=== PATIENT | male | born 2000 | race Hispanic/Latino ===

== ENCOUNTER 2018-10-13 10:47 | Emergency (ER) | payer OTHER ==
[~2018-10-13] VITALS: Ht 170.2 cm; Wt 83.9 kg
[2018-10-13] MEDS ORDERED: LIDO5DIS41 TOP (10:55)
[2018-10-13] MEDS ORDERED: ZANA4CAP PO (10:55)
[2018-10-13] MEDS ORDERED: NS 1,000 ML IV ONE (13:45)
[2018-10-13 14:09] LABS: BASO % 0.4 % (0.0-1.0); EOS # 0.1 10^3/uL (0.0-0.50); EOS % 1.6 % (0.0-3.0); HEMATOCRIT 45.4 % (42.0-52.0); HEMOGLOBIN 15.5 g/dl (13.5-17.5); LYMPH % 26.2 % (24.0-44.0); MEAN CORPUSCULAR HEMOGLOBIN 30.5 pg (27.0-33.0); MEAN CORPUSCULAR HGB CONC 34.1 g/dl (32.0-36.5); MEAN CORPUSCULAR VOLUME 89.2 fl (80.0-96.0); MONO # 0.7 10^3/uL (0.0-0.8); MONO % 8.7 % (0.0-5.0); NEUTROPHILS # 4.8 10^3/uL (1.8-7.7); NEUTROPHILS % 62.6 % (36.0-66.0); PLATELET COUNT, AUTOMATED 315 10^3/uL (150-450); RED BLOOD COUNT 5.09 10^6/uL (4.30-6.10); WHITE BLOOD COUNT 7.6 10^3/uL (4.0-10.0)
[2018-10-13 14:31] LABS: ALBUMIN 4.5 GM/DL (3.2-5.2); ALT/SGPT 24 U/L (12-78); BILIRUBIN,DIRECT < 0.1 MG/DL (0.0-0.2); BILIRUBIN,TOTAL 0.3 MG/DL (0.2-1.0); BLOOD UREA NITROGEN 9 MG/DL (7-18); CALCIUM LEVEL 9.4 MG/DL (8.5-10.1); CARBON DIOXIDE LEVEL 28 MEQ/L (21-32); CHLORIDE LEVEL 106 MEQ/L (98-107); CREATININE FOR GFR 0.91 MG/DL (0.70-1.30); GLUCOSE, FASTING 84 MG/DL (70-100); LIPASE 144 U/L (73-393); POTASSIUM SERUM 4.1 MEQ/L (3.5-5.1); SODIUM LEVEL 140 MEQ/L (136-145); TOTAL PROTEIN 7.8 GM/DL (6.4-8.2)
[2018-10-13] MEDS ORDERED: ISOVUE-370 76% 100ML VIAL (Q9967) As Ordered ONE (14:34)
[2018-10-13] MEDS ORDERED: ONDA4TAB6 PO (15:21)
[2018-10-13 15:35] VITALS: BP 143/90
--- NOTE | 2018-10-14 08:06 | ECGEPIP ---
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
--- NOTE | 2018-10-14 09:58 | REP ---
CT ABDOMEN AND PELVIS WITH IV CONTRAST ONLY: 10/13/2018. Clinical history: Right lower quadrant pain, rule out appendicitis. Technique: Bolus of 100 ml Isovue 370 with scanning through the abdomen and pelvis and both coronal and sagittal reconstructions provided. Findings: CT abdomen: No prior study. The lung windows at the lower chest were unremarkable. Heart is not enlarged and there is no pericardial thickening or effusion and no hiatal hernia. Liver, spleen, gallbladder and pancreas were all unremarkable. No ascites, biliary dilatation or calcified gallstones visible. No peripancreatic fluid or adenopathy of pathologic size. Adrenal glands are normal. Stomach with small amounts of retained fluid. Abdominal portion of the colon shows no sign of colitis, diverticulitis, stricture or mass. Small bowel loops unremarkable. Lung window review of all CT slices shows no evidence for perforation or free air. Lumbar and lower thoracic vertebral bodies along with posterior elements and the lower ribs visible were all unremarkable. CT pelvis: The sacrum, SI joints, pelvis, hips and symphysis pubis were all unremarkable. Kidneys show no stone, mass, cyst or hydronephrosis. I see no hydroureter. No ureteral stone. There is no ventral abdominal or inguinal hernia, pathologic sized inguinal adenopathy or mass. The distal left colon, sigmoid and rectosigmoid junction unremarkable. Rectum is collapsed, question of some edema in the perirectal fat. Bladder only partially filled. 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 No definite mass or stone. Small bowel loops in the deep pelvis unremarkable. There are no inflammatory changes about the cecum, dilated appendix, inflammatory change about the appendix or appendicolith. Prostate not enlarged. Impression: 1. There is no compelling CT evidence for acute appendicitis. No perforation or abscess. 2. Collapse and/or mild thickening of the rectal wall/mucosa with perirectal fat stranding that may reflect some proctitis. 3. No renal, ureteral or bladder stone, hydronephrosis or hydroureter. No ascites, abscess or free air. No other finding. Electronically Signed by Pedro Rodriguez MD 10/14/2018 10:08 A
== END 2018-10-13 15:43 | disposition home or self-care (01) ==
LOC: M ED 10:47
DX: K62.89 Other specified diseases of anus and rectum (principal)
CPT/HCPCS: 36415; 74177; 80048; 80076; 81001; 83690; 85025; 93005; 99284; Q9967